=== PATIENT | female | born 1985 | race Caucasian/White ===

== ENCOUNTER 2018-03-31 23:17 | Emergency (ER) | payer OTHER ==
[~2018-03-31] VITALS: Ht 157.5 cm; Wt 49.9 kg
[2018-04-01 00:32] VITALS: BP 112/74
[2018-04-01 01:37] VITALS: BP 100/77
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
[2018-04-01] MEDS ORDERED: TESSALON PERLE100 MG ORAL (02:32)
[2018-04-01 03:06] VITALS: BP 103/75
== END 2018-04-01 03:07 | disposition home or self-care (01) ==
LOC: EMR 04-01 01:17
DX: M54.6 Pain in thoracic spine (principal); M25.552 Pain in left hip; V43.52XA Car driver injured in collision with other type car in traffic accident, initial encounter; Y92.410 Unspecified street and highway as the place of occurrence of the external cause; F41.9 Anxiety disorder, unspecified
CPT/HCPCS: 99283